=== PATIENT | male | born 1935 | race Caucasian/White ===

== ENCOUNTER 2017-11-12 10:48 | Outpatient (CLI) | payer MEDICARE | END 2017-11-12 10:49 | disposition home or self-care (01) | LOC: BICMAMMO 10:48 | PROVIDERS: ATTEND Internal Medicine Rheumatology | DX: M81.0 Age-related osteoporosis without current pathological fracture (principal); M85.859 Other specified disorders of bone density and structure, unspecified thigh | CPT/HCPCS: 77080 ==

== ENCOUNTER 2020-03-11 10:04 | Outpatient (CLI) | payer MEDICARE ==
--- NOTE | 2020-03-11 10:46 | BD ---
EXAM: DEXA bone density examination HISTORY: 84-year-old osteopenic male for screening COMPARISON: None FINDINGS: L1--bone mineral density 1.239 g/sq cm; T score 1.5 L2--bone mineral density 1.324 g/sq cm; T score 2.1 L3--bone mineral density 1.329 g/sq cm; T score 2.1 L4--bone mineral density 1.541 g/sq cm; T score 4.1 Total L1-L4--bone mineral density 1.368 g/sq cm; T score 2.5 Left distal third forearm--bone mineral density0.602; T score -4.1 Total distal forearm--bone mineral density 0.534; T score -3.0 IMPRESSION: Osteoporosis.
== END 2020-03-11 10:05 | disposition home or self-care (01) ==
LOC: BICMAMMO 10:04
PROVIDERS: ATTEND Internal Medicine Rheumatology
DX: M81.0 Age-related osteoporosis without current pathological fracture (principal)
CPT/HCPCS: 77080